=== PATIENT | female | born 1980 | race Caucasian/White ===

== ENCOUNTER 2017-02-11 23:56 | Inpatient (IN) | payer BC ==
[2017-02-12] MEDS ORDERED: Ondansetron 4 MG/2 ML SDV IVPUSH ONE
[2017-02-12] MEDS ORDERED: HYDROmorphone 0.5 MG/0.5 ML Syringe IVPUSH ONE
--- NOTE | 2017-02-12 00:08 | EDM.PDOC ---
ED HPI DIABETIC EMERGENCY - General Chief Complaint: Gastrointestinal Problem Stated Complaint: SOB/VOMITING Time Seen by Provider: 02/11/17 23:56 Source: Reports: Patient History Limitations: Reports: No limitations - History of Present Illness INITIAL COMMENTS - FREE TEXT/NARRATIVE: 36-year-old female with type 1 diabetes who has an insulin pump was up here in the area for a 5K race yesterday. Last night she was out celebrating until late , and this morning was nauseous and vomiting. She was afraid because she wasn' t having any oral intake that she may go hypoglycemic if she took insulin so she turned her pump off. She has not had any insulin today. She's been unable to keep down fluids. She has a horrible migraine headache and abdominal cramps. Severity: severe Associated symptoms: Reports: shortness of breath (Feels short of breath) Associated Symptoms: Reports: headaches, nausea/vomiting, shortness of breath, weakness. Denies: chest pain, fever/chills - Related Data Allergies/ADRs: Allergies Allergy/AdvReac Type Severity Reaction Status Date / Time No Known Allergies Allergy Verified 02/12/17 00:07 Home Meds: Home Meds Medtronic Insulin Pump 02/12/17 [History] ED ROS GENERAL - Review of Systems Review Of Systems: See Below Constitutional: Reports: malaise, weakness Respiratory: Reports: Shortness of Breath Cardiovascular: Denies: Chest pain GI/Abdominal: Reports: Abdominal pain, Nausea, Vomiting : Reports: no symptoms Skin: Reports: pallor Neurological: Reports: Headache Psychiatric: Reports: Other (Patient is very uncomfortable and anxious) ED EXAM GENERAL NO PERIP PULSE - Physical Exam Exam: See Below Exam Limited By: No limitations General Appearance: alert, moderate distress (Very uncomfortable) Eye Exam: bilateral eye: EOMI (No jaundice) Throat/Mouth: Other (Oral mucosa appears moderately dry) Respiratory/Chest: no respiratory distress, lungs clear Cardiovascular: regular rate, rhythm, tachycardia (Mild tachycardia) GI/Abdominal: soft, tender (Diffuse tenderness to palpation, no focal tenderness ) Extremities: No: pedal edema Neurological: alert, no motor/sensory deficits Psychiatric: anxious Skin Exam: Warm, Dry Course - Vital Signs Last Recorded V/S: Last Vital Signs Temp 98.1 F 02/11/17 23:59 Pulse 113 H 02/12/17 01:55 Resp 21 H 02/12/17 01:55 BP 138/72 02/12/17 01:55 Pulse Ox 100 02/12/17 01:55 - Orders/Labs/Meds Orders: Active Orders 24 hr Category Date Time Status Patient Status Manage Transfer [TRANSFER] Routine ADT 02/12/17 01:33 Active HYDROmorphone [Dilaudid] Med 02/12/17 01:47 Active 0.5 mg IVPUSH Q2H PRN Insulin Regular, Human [NovoLIN R] 100 unit Med 02/12/17 00:45 Active Sodium Chloride 0.9% [Normal Saline] 100 ml IV TITRATE Sodium Chloride 0.9% [Normal Saline] 1,000 ml Med 02/12/17 00:00 Active IV ASDIRECTED Sodium Chloride 0.9% [Normal Saline] 1,000 ml Med 02/12/17 01:15 Active IV ASDIRECTED Resuscitation Status Routine Resus Stat 02/12/17 01:34 Ordered Medication Orders Hydromorphone HCl (Dilaudid) 0.5 mg IVPUSH Q2H PRN PRN Reason: Pain (severe 7-10) Last Admin: 02/12/17 02:05 Dose: 0.5 mg Sodium Chloride (Normal Saline) 1,000 mls @ 1,000 mls/hr IV ASDIRECTED JENNIFER Last Admin: 02/12/17 00:18 Dose: 1,000 mls/hr Insulin Human Regular 100 unit (/ Sodium Chloride) 101 mls @ 8.08 mls/hr IV TITRATE JENNIFER; 8 UNITS/HR PRN Reason: Protocol Last Titration: 02/12/17 02:25 Dose: 4 units/hr, 4.04 mls/hr Titration: 02/12/17 02:07 Dose: 6 units/hr, 6.06 mls/hr Admin: 02/12/17 00:58 Dose: 8 units/hr, 8.08 mls/hr Sodium Chloride (Normal Saline) 1,000 mls @ 500 mls/hr IV ASDIRECTED JENNIFER Stop: 02/12/17 03:16 Last Admin: 02/12/17 01:18 Dose: 500 mls/hr Labs: Laboratory Tests 02/11/17 02/11/17 02/12/17 Range/Units 23:59 23:59 00:00 WBC 29.0 H (4.5-11.0) K/uL RBC 4.72 (3.30-5.50) M/uL Hgb 13.7 (12.0-15.0) g/dL Hct 42.3 (36.0-48.0) % MCV 90 (80-98) fL MCH 29 (27-31) pg MCHC 32 (32-36) % Plt Count 551 H (150-400) K/uL Add Manual Diff Yes Neutrophils % (Manual) 86 H (36-66) % Band Neutrophils % 3 L (5-11) % Lymphocytes % (Manual) 4 L (24-44) % Monocytes % (Manual) 7 H (2-6) % Sample Site POC ABG pH (7.35-7.45) POC ABG pCO2 (35-45) mmHG POC ABG pO2 (80-105) mmHg POC ABG HCO3 (22.0-26.0) mmol/L POC ABG Total CO2 (23-27) mmol/L POC ABG O2 Sat (95-98) % POC ABG Base Excess (-2-3) mmol/L O2 Delivery Device Sodium 132 L (140-148) mmol/L Potassium 6.0 H (3.6-5.2) mmol/L Chloride 95 L (100-108) mmol/L Carbon Dioxide < 5 L (21-32) mmol/L Anion Gap 38.0 H (5.0-14.0) mmol/L BUN 25 H (7-18) mg/dL Creatinine 2.0 H (0.6-1.0) mg/dL Est Cr Clr Drug Dosing 37.45 mL/min Estimated GFR (MDRD) 28 L (>60) Glucose 599 H* (74-106) mg/dL Calcium 8.3 L (8.5-10.1) mg/dL Total Bilirubin 0.6 (0.2-1.0) mg/dL AST 36 (15-37) U/L ALT 39 (12-78) U/L Alkaline Phosphatase 104 (46-116) U/L Total Protein 9.1 H (6.4-8.2) g/dL Albumin 4.5 (3.4-5.0) g/dL Globulin 4.6 H (2.3-3.5) g/dL Albumin/Globulin Ratio 1.0 L (1.2-2.2) Lipase 389 (73-393) U/L Urine Color Urine Appearance Urine pH (4.5-8.0) Ur Specific Sumner (1.008-1.030) Urine Protein (NEGATIVE) mg/dL Urine Glucose (UA) (NEGATIVE) mg/dL Urine Ketones (NEGATIVE) mg/dL Urine Occult Blood (NEGATIVE) Urine Nitrite (NEGATIVE) Urine Bilirubin (NEGATIVE) Urine Urobilinogen (NORMAL) mg/dL Ur Leukocyte Esterase (NEGATIVE) Urine RBC (0-5) Urine WBC (0-5) Ur Epithelial Cells Amorphous Sediment Urine Bacteria Urine Mucus Ketones Large H (NEGATIVE) 02/12/17 02/12/17 Range/Units 00:01 01:56 WBC (4.5-11.0) K/uL RBC (3.30-5.50) M/uL Hgb (12.0-15.0) g/dL Hct (36.0-48.0) % MCV (80-98) fL MCH (27-31) pg MCHC (32-36) % Plt Count (150-400) K/uL Add Manual Diff Neutrophils % (Manual) (36-66) % Band Neutrophils % (5-11) % Lymphocytes % (Manual) (24-44) % Monocytes % (Manual) (2-6) % Sample Site R brachial POC ABG pH 7.08 L* (7.35-7.45) POC ABG pCO2 13.8 L* (35-45) mmHG POC ABG pO2 117 H (80-105) mmHg POC ABG HCO3 4.1 L (22.0-26.0) mmol/L POC ABG Total CO2 < 5 L (23-27) mmol/L POC ABG O2 Sat 97 (95-98) % POC ABG Base Excess -26 L (-2-3) mmol/L O2 Delivery Device Room air Sodium (140-148) mmol/L Potassium (3.6-5.2) mmol/L Chloride (100-108) mmol/L Carbon Dioxide (21-32) mmol/L Anion Gap (5.0-14.0) mmol/L BUN (7-18) mg/dL Creatinine (0.6-1.0) mg/dL Est Cr Clr Drug Dosing mL/min Estimated GFR (MDRD) (>60) Glucose (74-106) mg/dL Calcium (8.5-10.1) mg/dL Total Bilirubin (0.2-1.0) mg/dL AST (15-37) U/L ALT (12-78) U/L Alkaline Phosphatase (46-116) U/L Total Protein (6.4-8.2) g/dL Albumin (3.4-5.0) g/dL Globulin (2.3-3.5) g/dL Albumin/Globulin Ratio (1.2-2.2) Lipase (73-393) U/L Urine Color Yellow Urine Appearance Clear Urine pH 5.0 (4.5-8.0) Ur Specific Sumner 1.020 (1.008-1.030) Urine Protein Negative (NEGATIVE) mg/dL Urine Glucose (UA) >1000 H (NEGATIVE) mg/dL Urine Ketones 150 H (NEGATIVE) mg/dL Urine Occult Blood Moderate (NEGATIVE) Urine Nitrite Negative (NEGATIVE) Urine Bilirubin Negative (NEGATIVE) Urine Urobilinogen Normal (NORMAL) mg/dL Ur Leukocyte Esterase Negative (NEGATIVE) Urine RBC 0-5 (0-5) Urine WBC 0-5 (0-5) Ur Epithelial Cells Few Amorphous Sediment Not seen Urine Bacteria Few Urine Mucus Not seen Ketones (NEGATIVE) Meds: Medications Generic Name Dose Route Start Last Admin Trade Name Freq PRN Reason Stop Dose Admin Hydromorphone HCl 0.5 mg 02/12/17 01:47 02/12/17 02:05 Dilaudid IVPUSH 0.5 mg Q2H PRN Administration Pain (severe 7-10) Sodium Chloride 1,000 mls @ 1,000 mls/hr 02/12/17 00:00 02/12/17 00:18 Normal Saline IV 1,000 mls/hr ASDIRECTED JENNIFER Administration Insulin Human Regular 100 unit 101 mls @ 8.08 mls/hr 02/12/17 00:45 02/12/17 02:25 / Sodium Chloride IV 4 units/hr TITRATE JENNIFER 4.04 mls/hr Protocol Titration 8 UNITS/HR Sodium Chloride 1,000 mls @ 500 mls/hr 02/12/17 01:15 02/12/17 01:18 Normal Saline IV 02/12/17 03:16 500 mls/hr ASDIRECTED JENNIFER Administration Discontinued Medications Generic Name Dose Route Start Last Admin Trade Name Josiahq PRN Reason Stop Dose Admin Hydromorphone HCl 0.5 mg 02/12/17 00:00 02/12/17 00:20 Dilaudid IVPUSH 02/12/17 00:01 0.5 mg ONETIME ONE Administration Hydromorphone HCl Confirm 02/12/17 02:02 Dilaudid Administered 02/12/17 02:03 Dose 0.5 mg .ROUTE .STK-MED ONE Sodium Chloride Confirm 02/12/17 00:46 Normal Saline Administered 02/12/17 00:47 Dose 100 mls @ as directed .ROUTE .STK-MED ONE Insulin Human Regular 8 unit 02/12/17 00:15 02/12/17 00:22 Novolin R IVPUSH 02/12/17 00:16 8 units ONETIME ONE Administration Protocol Ondansetron HCl 4 mg 02/12/17 00:00 02/12/17 00:18 Zofran IVPUSH 02/12/17 00:01 4 mg ONETIME ONE Administration - Re-Assessments/Exams Free Text/Narrative Re-Assessment/Exam: 02/12/17 00:48 An IV was started and hydration was began with normal saline 1 L bolus. A point -of-care glucose was obtained and was 599. CBC, CMP, lipase and serum ketones were obtained as well as ABGs on room air. PH was 7.08, HCO3 was only 4.1. 8 units of IV insulin were given to the patient and an insulin drip at 8 units an hour was started. Patient was given 4 mg of Zofran IV and 0.5 mg of Dilaudid IV for symptoms. Potassium was 5.9 so potassium will be held until the next liter given for rehydration. Dr. Sen of the hospitalist service was called for admission. Departure - Departure Time of Disposition: 02:21 Disposition: Admitted As Inpatient 65 Condition: fair Clinical Impression: Hyperglycemia Diabetic ketoacidosis Qualifiers: Diabetes mellitus type: type 1 Diabetes mellitus complication detail: without coma Qualified Code(s): E10.10 - Type 1 diabetes mellitus with ketoacidosis without coma Referrals: PCP,None [Primary Care Provider] - Forms: ED Department Discharge Care Plan Goals: Patient is to be admitted to the ICU by the hospitalist service. Aggressive rehydration as well as glucose control and electrolyte monitoring will continue. - My Orders Last 24 Hours: My Active Orders 02/12/17 00:00 Sodium Chloride 0.9% [Normal Saline] 1,000 ml IV ASDIRECTED - Assessment/Plan Last 24 Hours: My Active Orders 02/12/17 00:00 Sodium Chloride 0.9% [Normal Saline] 1,000 ml IV ASDIRECTED
[2017-02-12] MEDS ORDERED: Insulin Regular, Human 100 Units/ML 10 ML Vial IVPUSH ONE (00:15)
[2017-02-12] MEDS ORDERED: Sodium Chloride 0.9% 100 ML ONE (00:46)
[2017-02-12] MEDS ORDERED: Sodium Chloride 0.9% 1,000 ML IV SCH ×4 (01:15→09:45)
--- NOTE | 2017-02-12 01:47 | PCM.HP ---
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 She does appear visiting family and ran a 5K race. She notes that rates her insulin pump needle appeared to be kinked and she removed insulin pump. After running a race she completely forgot to put her back on. Left leg to celebrate finishing the race and doing well she was family and friends and had several alcoholic beverages. She woke up this morning with nausea, vomiting and diffuse crampy abdominal pain. Pain was moderate and did not radiate. She didn't take anything to make it better. Vomiting seems to make the pain worse. She vomited every 15-30 minutes pretty much all day and finally came to the emergency room tonight for further evaluation. She has not had any fevers and was well prior to starting the race. She has not had any diarrhea or change in urinary habits. No complaints of chest pain or shortness of breath. Workup in the emergency room was remarkable for diabetic ketoacidosis with a pH of 7.08, bicarbonate is less than 5 and her potassium was 6. Creatinine is 2. She will be admitted to the intensive care unit for management and insulin infusion. 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: Musculoskeletal History: Reports: Fracture Other Musculoskeletal History: left and right wrist Neurological History: Reports: Migraines Endocrine/Metabolic History: Reports: Diabetes, type I - Past Surgical History Female Surgical History: Reports: Tubal ligation Social & Family History - Family History Endocrine/Metabolic: Denies: Diabetes, type I - Tobacco Use Smoking Status *Q: Never Smoker - Caffeine Use Caffeine Use: Reports: Coffee - Alcohol Use Alcohol Use History: Yes Days Per Week of Alcohol Use: 1 - Recreational Drug Use Recreational Drug Use: No H&P Review of Systems - Review of Systems: Review Of Systems: See Below Free Text/Narrative: A complete 12 point review of systems was obtained. Pertinent positives and negatives are noted in the history of present illness. All other systems were reviewed and were negative except as noted. Exam - Exam Exam: See Below - Vital Signs Vital Signs: Last Vital Signs Temp 36.7 C 02/11/17 23:59 Pulse 114 H 02/12/17 00:26 Resp 22 H 02/12/17 00:26 BP 146/83 H 02/12/17 00:26 Pulse Ox 99 02/12/17 00:26 Weight: 67.132 kg - Exam Quality Assessment: No: supplemental oxygen, urinary catheter General: alert, oriented, cooperative, mild distress HEENT: Conjunctiva clear, Hearing intact. No: Mucosa moist & pink (dry), Scleral icterus Neck: supple, trachea midline. No: lymphadenopathy, thyromegaly Lungs: Clear to auscultation, Normal respiratory effort Cardiovascular: regular rhythm, tachycardia. No: systolic murmur Abdomen: normal bowel sounds, soft, tenderness (Mild diffuse). No: distention Back Exam: normal inspection, full range of motion Extremities: normal inspection, normal pulses. No: cyanosis, edema Peripheral Pulses: 2+: dorsalis pedis (L), dorsalis pedis (R) Skin: warm, dry, intact. No: rash Neuro Extensive - Mental Status: alert, oriented x3, nl response to commands Neuro Extensive - Motor, Sensory, Reflexes: CN II-XII intact. No: dysarthria, abnormal motor, tremor Psychiatric: alert, normal affect, normal mood - Patient Data Lab Results last 24 hrs: Laboratory Results - last 24 hr 02/11/17 02/11/17 02/12/17 Range/Units 23:59 23:59 00:00 WBC 29.0 H (4.5-11.0) K/uL RBC 4.72 (3.30-5.50) M/uL Hgb 13.7 (12.0-15.0) g/dL Hct 42.3 (36.0-48.0) % MCV 90 (80-98) fL MCH 29 (27-31) pg MCHC 32 (32-36) % Plt Count 551 H (150-400) K/uL Add Manual Diff Yes Neutrophils % (Manual) 86 H (36-66) % Band Neutrophils % 3 L (5-11) % Lymphocytes % (Manual) 4 L (24-44) % Monocytes % (Manual) 7 H (2-6) % Sample Site POC ABG pH (7.35-7.45) POC ABG pCO2 (35-45) mmHG POC ABG pO2 (80-105) mmHg POC ABG HCO3 (22.0-26.0) mmol/L POC ABG Total CO2 (23-27) mmol/L POC ABG O2 Sat (95-98) % POC ABG Base Excess (-2-3) mmol/L O2 Delivery Device Sodium 132 L (140-148) mmol/L Potassium 6.0 H (3.6-5.2) mmol/L Chloride 95 L (100-108) mmol/L Carbon Dioxide < 5 L (21-32) mmol/L Anion Gap 38.0 H (5.0-14.0) mmol/L BUN 25 H (7-18) mg/dL Creatinine 2.0 H (0.6-1.0) mg/dL Est Cr Clr Drug Dosing 37.45 mL/min Estimated GFR (MDRD) 28 L (>60) Glucose 599 H* (74-106) mg/dL Calcium 8.3 L (8.5-10.1) mg/dL Total Bilirubin 0.6 (0.2-1.0) mg/dL AST 36 (15-37) U/L ALT 39 (12-78) U/L Alkaline Phosphatase 104 (46-116) U/L Total Protein 9.1 H (6.4-8.2) g/dL Albumin 4.5 (3.4-5.0) g/dL Globulin 4.6 H (2.3-3.5) g/dL Albumin/Globulin Ratio 1.0 L (1.2-2.2) Lipase 389 (73-393) U/L Ketones Large H (NEGATIVE) 02/12/17 Range/Units 00:01 WBC (4.5-11.0) K/uL RBC (3.30-5.50) M/uL Hgb (12.0-15.0) g/dL Hct (36.0-48.0) % MCV (80-98) fL MCH (27-31) pg MCHC (32-36) % Plt Count (150-400) K/uL Add Manual Diff Neutrophils % (Manual) (36-66) % Band Neutrophils % (5-11) % Lymphocytes % (Manual) (24-44) % Monocytes % (Manual) (2-6) % Sample Site R brachial POC ABG pH 7.08 L* (7.35-7.45) POC ABG pCO2 13.8 L* (35-45) mmHG POC ABG pO2 117 H (80-105) mmHg POC ABG HCO3 4.1 L (22.0-26.0) mmol/L POC ABG Total CO2 < 5 L (23-27) mmol/L POC ABG O2 Sat 97 (95-98) % POC ABG Base Excess -26 L (-2-3) mmol/L O2 Delivery Device Room air Sodium (140-148) mmol/L Potassium (3.6-5.2) mmol/L Chloride (100-108) mmol/L Carbon Dioxide (21-32) mmol/L Anion Gap (5.0-14.0) mmol/L BUN (7-18) mg/dL Creatinine (0.6-1.0) mg/dL Est Cr Clr Drug Dosing mL/min Estimated GFR (MDRD) (>60) Glucose (74-106) mg/dL Calcium (8.5-10.1) mg/dL Total Bilirubin (0.2-1.0) mg/dL AST (15-37) U/L ALT (12-78) U/L Alkaline Phosphatase (46-116) U/L Total Protein (6.4-8.2) g/dL Albumin (3.4-5.0) g/dL Globulin (2.3-3.5) g/dL Albumin/Globulin Ratio (1.2-2.2) Lipase (73-393) U/L Ketones (NEGATIVE) Result Diagrams: 02/11/17 23:59 02/11/17 23:59 *Q Meaningful Use (ADM) - VTE *Q VTE Criteria *Q: - VTE Risk Assess *Q Each Risk Factor Represents 1 Point: None Total Score 1 Point Risk Factors: 0 Each Risk Factor Represents 2 Points: None Total Score 2 Point Risk Factors: 0 Each Risk Factor Represents 3 Points: None Total Score 3 Point Risk Factors: 0 Each Risk Factor Represents 5 Points: None Total Score 5 Point Risk Factors: 0 Venous Thromboembolism Risk Factor Score *Q: 0 - Stroke *Q Stroke Criteria *Q: - AMI *Q AMI Criteria *Q: - Problem List (1) Diabetic ketoacidosis SNOMED Code(s): 418048456, 311170673 ICD Code: E13.10 - OTH DIABETES MELLITUS WITH KETOACIDOSIS WITHOUT COMA Status: Acute Current Visit: Yes Qualifiers: Diabetes mellitus type: type 1 Diabetes mellitus complication detail: without coma Qualified Code(s): E10.10 - Type 1 diabetes mellitus with ketoacidosis without coma (2) Hyperkalemia SNOMED Code(s): 74496937 ICD Code: E87.5 - HYPERKALEMIA Status: Acute Current Visit: Yes (3) Acute kidney injury SNOMED Code(s): 60765059 ICD Code: N17.9 - ACUTE KIDNEY FAILURE, UNSPECIFIED Status: Acute Current Visit: Yes Problem List Initiated/Reviewed/Updated: Yes Orders Last 24hrs: Active Orders 24 hr Category Date Time Status Patient Status Manage Transfer [TRANSFER] Routine ADT 02/12/17 01:33 Ordered UA W/MICROSCOPIC [URIN] Stat Lab 02/12/17 01:15 Uncollected Insulin Regular, Human [NovoLIN R] 100 unit Med 02/12/17 00:45 Active Sodium Chloride 0.9% [Normal Saline] 100 ml IV TITRATE Sodium Chloride 0.9% [Normal Saline] 1,000 ml Med 02/12/17 00:00 Active IV ASDIRECTED Sodium Chloride 0.9% [Normal Saline] 1,000 ml Med 02/12/17 01:15 Active IV ASDIRECTED Resuscitation Status Routine Resus Stat 02/12/17 01:34 Ordered Medication Orders Sodium Chloride (Normal Saline) 1,000 mls @ 1,000 mls/hr IV ASDIRECTED JENNIFER Last Admin: 02/12/17 00:18 Dose: 1,000 mls/hr Insulin Human Regular 100 unit (/ Sodium Chloride) 101 mls @ 8.08 mls/hr IV TITRATE JENNIFER; 8 UNITS/HR PRN Reason: Protocol Last Admin: 02/12/17 00:58 Dose: 8 units/hr, 8.08 mls/hr Sodium Chloride (Normal Saline) 1,000 mls @ 500 mls/hr IV ASDIRECTED JENNIFER Stop: 02/12/17 03:16 Last Admin: 02/12/17 01:18 Dose: 500 mls/hr Assessment/Plan Comment:: Assessment and plan - Diabetic ketoacidosis - secondary to insulin pump failure and removal without replacement. No strong evidence for infection at this time. Patient has significant acidosis and mild hyperkalemia. She is dehydrated. Complicated by vomiting and abdominal pain. -IV fluids -Insulin drip -Accu-Cheks every hour -BMP every 4 hours -Check magnesium level -Limits blood sugar less than 250 start D5 normal saline if anion gap has normalized and continue insulin drip -Restart insulin pump once blood sugar and bicarbonate normal Acute kidney injury - secondary to dehydration with diabetes ketoacidosis. I would anticipate normalization of kidney function with some fluids. -IV fluids repeat labs in 4 hours Hyperkalemia - mild, secondary to acidosis. Plan to recheck in 4 hours and may need to adjust depending on level at that time. -Repeat labs in 4 hours Maintenance issues - - DVT prophylaxis - mechanical - GI prophylaxis - not indicated - Nutrition - clear liquids - Molina catheter - indicated CODE STATUS - full code Admission justification - This patient will be admitted for inpatient services and is medically appropriate meeting medical necessity for inpatient admission as outlined in my documentation. I reasonably expect the patient will require inpatient services that span a period time over 2 midnights. I reasonably expect this patient to be discharged or transferred within 96 hours [facility]. Disposition - anticipate discharge home Primary care physician - PCP is in [place], [place] Bj Sen M.D.
[2017-02-12] MEDS ORDERED: HYDROmorphone 0.5 MG/0.5 ML Syringe ONE (02:02)
[2017-02-12] MEDS: HYDROmorphone 0.5 MG/0.5 ML Syringe IVPUSH PRN ×4 (02:05→18:30)
[2017-02-12] MEDS ORDERED: Ondansetron 4 MG Tab.DIS PO PRN (03:14)
[2017-02-12] MEDS ORDERED: 50% Dextrose in Water 50 ML Syringe IVPUSH PRN ×2 (03:14→09:29)
[2017-02-12] MEDS: Dextrose 5%-0.9% NaCl 1,000 ML IV SCH ×3 (04:07→20:15)
[2017-02-12] MEDS: Acetaminophen 325 MG Tab PO PRN (06:11)
[2017-02-12] MEDS: Ondansetron 4 MG/2 ML SDV IV PRN ×2 (07:08→20:29)
[2017-02-12] MEDS ORDERED: STERILE WATER IV PRN ×3 (09:29)
[2017-02-12] MEDS ORDERED: Magnesium Sulfate/Water 50 ML IV PRN (09:29)
[2017-02-12] MEDS ORDERED: POTASSIUM CHLORIDE IV PRN ×3 (09:29)
[2017-02-12] MEDS ORDERED: Potassium Chloride 10% 20 MEQ/15 ML Soln 15 ML UD Cup PO PRN ×3 (09:29)
[2017-02-12] MEDS ORDERED: Potassium Chloride 40 MEQ in Premix Bag 1 BAG IV PRN ×2 (09:43→09:54)
--- NOTE | 2017-02-12 09:44 | PCM.PN ---
- General Info Date of Service: 02/12/17 Functional Status: Reports: pain controlled, tolerating diet - Review of Systems General: Reports: Weakness. Denies: Fever, Fatigue, Chills Pulmonary: Reports: no symptoms Cardiovascular: Reports: No Symptoms Gastrointestinal: Reports: Abdominal pain, Nausea, Vomiting. Denies: Constipation, Diarrhea, Difficulty swallowing Genitourinary: Reports: no symptoms Systems Review Comment:: This patient is a 36-year-old woman who was admitted last night to the intensive care unit with severe diabetic ketoacidosis. She has improved modestly since admission, glucose levels have come down but she remained significantly acidotic with a bicarbonate of less than 10 and an anion gap still in the 20s. Continues to experience some symptoms of nausea with intermittent vomiting. Vital signs have otherwise been stable, urine output has been negligible thus far. - Patient Data Vitals - most recent: Last Vital Signs Temp 98.9 F 02/12/17 08:00 Pulse 112 H 02/12/17 06:00 Resp 20 02/12/17 08:00 BP 111/61 02/12/17 08:00 Pulse Ox 98 02/12/17 08:00 Weight - most recent: 141 lb 14.408 oz I&O - last 24 hours: Intake & Output 02/11/17 02/12/17 02/12/17 22:59 06:59 14:59 Intake Total 1401 Output Total 500 400 Balance 901 -400 Lab Results last 24 hrs: Laboratory Results - last 24 hr 02/12/17 02/12/17 02/12/17 Range/Units 01:56 05:51 05:51 WBC 23.4 H (4.5-11.0) K/uL RBC 4.04 (3.30-5.50) M/uL Hgb 11.6 L D (12.0-15.0) g/dL Hct 35.7 L (36.0-48.0) % MCV 88 (80-98) fL MCH 29 (27-31) pg MCHC 33 (32-36) % Plt Count 397 (150-400) K/uL Sodium 135 L (140-148) mmol/L Potassium 5.0 (3.6-5.2) mmol/L Chloride 105 (100-108) mmol/L Carbon Dioxide 8 L (21-32) mmol/L Anion Gap 27.0 H (5.0-14.0) mmol/L BUN 21 H (7-18) mg/dL Creatinine 1.4 H (0.6-1.0) mg/dL Est Cr Clr Drug Dosing 53.50 mL/min Estimated GFR (MDRD) 42 L (>60) Glucose 226 H (74-106) mg/dL Calcium 7.3 L (8.5-10.1) mg/dL Magnesium 1.9 (1.8-2.4) mg/dL Urine Color Yellow Urine Appearance Clear Urine pH 5.0 (4.5-8.0) Ur Specific [place] 1.020 (1.008-1.030) Urine Protein Negative (NEGATIVE) mg/dL Urine Glucose (UA) >1000 H (NEGATIVE) mg/dL Urine Ketones 150 H (NEGATIVE) mg/dL Urine Occult Blood Moderate (NEGATIVE) Urine Nitrite Negative (NEGATIVE) Urine Bilirubin Negative (NEGATIVE) Urine Urobilinogen Normal (NORMAL) mg/dL Ur Leukocyte Esterase Negative (NEGATIVE) Urine RBC 0-5 (0-5) Urine WBC 0-5 (0-5) Ur Epithelial Cells Few Amorphous Sediment Not seen Urine Bacteria Few Urine Mucus Not seen Med Orders - Current: Current Medications Acetaminophen (Tylenol) 650 mg PO Q4H PRN PRN Reason: Pain (Mild 1-3)/fever Last Admin: 02/12/17 06:11 Dose: 650 mg Dextrose/Water (Dextrose 50% In Water) 50 ml IVPUSH ONETIME PRN PRN Reason: Blood Glucose Dextrose/Water (Dextrose 50% In Water) 50 ml IVPUSH ONETIME PRN PRN Reason: Blood Glucose Hydromorphone HCl (Dilaudid) 0.5 mg IVPUSH Q2H PRN PRN Reason: Pain (severe 7-10) Last Admin: 02/12/17 07:13 Dose: 0.5 mg Dextrose/Sodium Chloride (Dextrose 5%-Normal Saline) 1,000 mls @ 125 mls/hr IV ASDIRECTED JENNIFER Last Admin: 02/12/17 04:07 Dose: 125 mls/hr Insulin Human Regular 100 unit (/ Sodium Chloride) 101 mls @ 6.76 mls/hr IV TITRATE JENNIFER; 0.1 UNIT/KG/HR PRN Reason: Protocol Sodium Chloride (Normal Saline) 1,000 mls @ 125 mls/hr IV ASDIRECTED JENNIFER Last Admin: 02/12/17 03:20 Dose: 125 mls/hr Magnesium Sulfate (Magnesium Sulfate 2 Gm In Water 50 Ml) 50 mls @ 25 mls/hr IV ONETIME PRN PRN Reason: low magnesium Lorazepam (Ativan) 0.5 mg IVPUSH Q2H PRN PRN Reason: Nausea Ondansetron HCl (Zofran Odt) 4 mg PO Q6H PRN PRN Reason: Nausea able to take PO Ondansetron HCl (Zofran) 4 mg IV Q6H PRN PRN Reason: Nausea/Vomiting Last Admin: 02/12/17 07:08 Dose: 4 mg Potassium Chloride (Potassium Chloride Solution) 20 meq PO NOW PRN PRN Reason: Hypokalemia Potassium Chloride (Kcl 40 Meq In Water 100 Ml) 20 meq IV NOW PRN PRN Reason: Hypokalemia Potassium Chloride (Potassium Chloride Solution) 40 meq PO NOW PRN PRN Reason: Hypokalemia Potassium Chloride (Kcl 40 Meq In Water 100 Ml) 40 meq IV NOW PRN PRN Reason: Hypokalemia Potassium Chloride (Potassium Chloride Solution) 40 meq PO Q2H PRN PRN Reason: Hypokalemia Stop: 02/12/17 11:30 Potassium Chloride (Kcl 40 Meq In Water 100 Ml) 40 meq IV Q4H PRN PRN Reason: Hypokalemia Stop: 02/12/17 13:30 Discontinued Medications Hydromorphone HCl (Dilaudid) 0.5 mg IVPUSH ONETIME ONE Stop: 02/12/17 00:01 Last Admin: 02/12/17 00:20 Dose: 0.5 mg Hydromorphone HCl (Dilaudid) Confirm Administered Dose 0.5 mg .ROUTE .STK-MED ONE Stop: 02/12/17 02:03 Last Admin: 02/12/17 03:16 Dose: Not Given Sodium Chloride (Normal Saline) 1,000 mls @ 1,000 mls/hr IV ASDIRECTED JENNIFER Last Admin: 02/12/17 00:18 Dose: 1,000 mls/hr Insulin Human Regular 100 unit (/ Sodium Chloride) 101 mls @ 8.08 mls/hr IV TITRATE JENNIFER; 8 UNITS/HR PRN Reason: Protocol Last Titration: 02/12/17 09:00 Dose: 2.5 units/hr, 2.52 mls/hr Sodium Chloride (Normal Saline) Confirm Administered Dose 100 mls @ as directed .ROUTE .STK-MED ONE Stop: 02/12/17 00:47 Last Admin: 02/12/17 03:16 Dose: Not Given Sodium Chloride (Normal Saline) 1,000 mls @ 500 mls/hr IV ASDIRECTED [facility] Stop: 02/12/17 03:16 Last Admin: 02/12/17 01:18 Dose: 500 mls/hr Insulin Human Regular (Novolin R) 8 unit IVPUSH ONETIME ONE PRN Reason: Protocol Stop: 02/12/17 00:16 Last Admin: 02/12/17 00:22 Dose: 8 units Ondansetron HCl (Zofran) 4 mg IVPUSH ONETIME ONE Stop: 02/12/17 00:01 Last Admin: 02/12/17 00:18 Dose: 4 mg - Exam Lungs: Clear to auscultation, Normal respiratory effort Cardiovascular: Regular Rate, Regular Rhythm, No Murmurs Abdomen: bowel sounds present, soft, no tenderness, no distension Extremities: no edema Skin: warm, dry, intact - Problem List Review Problem List Initiated/Reviewed/Updated: Yes - My Orders Last 24 Hours: My Active Orders 02/12/17 09:29 Diabetes Education [RC] Click to Edit Vital Signs [RC] Q1H Dextrose 50% in Water 50 ml IVPUSH ONETIME PRN Magnesium Sulfate/Water [Magnesium Sulfate 2 GM in Water 50 ML] 50 ml IV ONETIME Potassium Chloride [KCL 40 MEQ in Water 100 ML] 20 meq IV NOW PRN Potassium Chloride [KCL 40 MEQ in Water 100 ML] 40 meq IV NOW PRN Potassium Chloride [KCL 40 MEQ in Water 100 ML] 40 meq IV Q4H PRN Potassium Chloride [Potassium Chloride Solution] 20 meq PO NOW PRN Potassium Chloride [Potassium Chloride Solution] 40 meq PO NOW PRN Potassium Chloride [Potassium Chloride Solution] 40 meq PO Q2H PRN 02/12/17 09:30 BASIC METABOLIC PANEL,BMP [CHEM] Q4H MAGNESIUM [CHEM] Q6H PHOSPHORUS [CHEM] Q6H Medication Continuation Instructions [OM.PC] ASDIRECTED Medication Discontinuation Instructions [OM.PC] ASDIRECTED 02/12/17 09:31 Notify Provider Laboratory Res [RC] ASDIRECTED Notify Provider Laboratory Res [RC] ASDIRECTED Notify Provider Laboratory Res [RC] ASDIRECTED 02/12/17 09:33 LORazepam [Ativan] 0.5 mg IVPUSH Q2H PRN 02/12/17 11:30 POTASSIUM,K [CHEM] Q2H 02/12/17 13:30 BASIC METABOLIC PANEL,BMP [CHEM] Q4H 02/12/17 15:30 MAGNESIUM [CHEM] Q6H PHOSPHORUS [CHEM] Q6H POTASSIUM,K [CHEM] Q2H 02/12/17 17:30 BASIC METABOLIC PANEL,BMP [CHEM] Q4H 02/12/17 19:30 POTASSIUM,K [CHEM] Q2H 02/12/17 21:30 BASIC METABOLIC PANEL,BMP [CHEM] Q4H MAGNESIUM [CHEM] Q6H PHOSPHORUS [CHEM] Q6H 02/12/17 23:30 POTASSIUM,K [CHEM] Q2H 02/13/17 01:30 BASIC METABOLIC PANEL,BMP [CHEM] Q4H POTASSIUM,K [CHEM] Q2H 02/13/17 03:30 MAGNESIUM [CHEM] Q6H PHOSPHORUS [CHEM] Q6H POTASSIUM,K [CHEM] Q2H 02/13/17 05:00 CBC WITH AUTO DIFF [HEME] Timed COMPREHENSIVE METABOLIC PN,CMP [CHEM] Timed 02/13/17 05:30 BASIC METABOLIC PANEL,BMP [CHEM] Q4H POTASSIUM,K [CHEM] Q2H 02/13/17 07:30 POTASSIUM,K [CHEM] Q2H - Plan Plan:: Assessment and plan - Diabetic ketoacidosis - secondary to insulin pump failure and removal without replacement. No strong evidence for infection at this time. Modest improvement since admission, glucose levels are improved but she continues to have a significant acidosis. -IV fluids -Insulin drip -Potassium every 2 hours -Accu-Cheks every hour -BMP every 4 hours -Check magnesium level -Limits blood sugar less than 250 start D5 normal saline if anion gap has normalized and continue insulin drip -Restart insulin pump once blood sugar and bicarbonate normal Acute kidney injury - secondary to dehydration with diabetes ketoacidosis. Renal function has improved with IV fluids, urine output remains poor. -Continue to monitor urine output and renal function closely Hyperkalemia - mild, secondary to acidosis. Plan to recheck in 4 hours and may need to adjust depending on level at that time. -Potassium level every 2 hours Maintenance issues - - DVT prophylaxis - mechanical - GI prophylaxis - not indicated - Nutrition - clear liquids - Molina catheter - indicated CODE STATUS - full code Admission justification - This patient will be admitted for inpatient services and is medically appropriate meeting medical necessity for inpatient admission as outlined in my documentation. I reasonably expect the patient will require inpatient services that span a period time over 2 midnights. I reasonably expect this patient to be discharged or transferred within 96 hours [facility] Disposition - anticipate discharge home Primary care physician - PCP is in [place], [place]
[2017-02-12] MEDS ORDERED: Potassium Chloride 20 MEQ in Premix Bag 1 BAG IV PRN (09:45)
[2017-02-12] MEDS: LORazepam 2 MG/ML MDV IVPUSH PRN ×5 (09:52→21:14)
[2017-02-12] MEDS: Pantoprazole 40 MG Vial IVPUSH SCH (10:38)
[2017-02-12] MEDS ORDERED: Calcium Gluconate 2 GM in Sodium Chloride 0.9% 100 ML IV ONE (16:00)
[2017-02-12] MEDS ORDERED: Lidocaine 1% 2 ML ONE (22:44)
[2017-02-13] MEDS: Dextrose 5%-0.9% NaCl 1,000 ML IV SCH ×3 (04:08→20:36)
[2017-02-13] MEDS ORDERED: POTASSIUM PHOSPHATES IV SCH ×2 (04:45→07:00)
[2017-02-13] MEDS ORDERED: SODIUM CHLORIDE IV SCH ×2 (04:45→07:00)
[2017-02-13] MEDS ORDERED: Potassium Phosphates 20 MMOLE in Sodium Chloride 0.9% 250 ML IV SCH (08:00)
[2017-02-13] MEDS: Pantoprazole 40 MG Vial IVPUSH SCH (08:18)
[2017-02-13] MEDS: Potassium Phosphates 20 MMOLE in Sodium Chloride 0.9% 250 ML IV SCH ×2 (08:41→12:35)
[2017-02-13] MEDS: HYDROmorphone 0.5 MG/0.5 ML Syringe IVPUSH PRN ×3 (09:07→20:33)
[2017-02-13] MEDS: LORazepam 2 MG/ML MDV IVPUSH PRN ×3 (09:43→20:33)
[2017-02-13] MEDS ORDERED: Potassium Chloride 20 MEQ Tab.ER PO ONE (10:00)
[2017-02-13] MEDS: Ondansetron 4 MG/2 ML SDV IV PRN (10:53)
--- NOTE | 2017-02-13 11:06 | MR ---
MR brain. Indication: Headache Findings: No restricted diffusion to indicate acute infarct. No hemosiderin deposition. Tiny punctat e 2 mm focus of high T2 signal deep to the right insular cortex within the white matter on axial alanis ge #[id number] FLAIR. Cerebral vascular flow voids are patent. Mild ethmoidal mucosal thickening. No extra-a xial fluid collection. Impression: 1. No acute infarct. 2. Tiny high T2 focus within the white matter just deep to the right insular cortex. Questionable cl inical significance. It is indeterminate but could indicate small vessel ischemic disease, tiny insu lt or demyelination.
[2017-02-13] MEDS ORDERED: SUMAtriptan 6 MG/0.5 ML SDV SUBCUT ONE (13:00)
[2017-02-13] MEDS ORDERED: Potassium Chloride 20 MEQ, Lidocaine 1% 2 ML in Sodium Chloride 0.9% 100 ML IV ONE (17:00)
--- NOTE | 2017-02-13 19:20 | PCM.PN ---
- General Info Date of Service: 02/13/17 Functional Status: Reports: urinating - Review of Systems General: Reports: Weakness. Denies: Fever, Chills Pulmonary: Reports: no symptoms Cardiovascular: Reports: No Symptoms Gastrointestinal: Reports: Nausea. Denies: Abdominal pain, Constipation, Diarrhea, Vomiting Neurological: Reports: Headache Systems Review Comment:: This patient has done well over the past 24 hours with total resolution of her diabetic ketoacidosis. Unfortunately she is had ongoing difficulty with a headache, there is a past history of migraine headaches which have not occurred over the past several years. Headache is present on the left side and radiates back towards the posterior aspect of the head. MRI was obtained today without contrast and shows no significant abnormalities to explain the headache. She did receive a dose of Imitrex earlier today and headache has been significantly improved over the past few hours. Oral intake has been very poor and for this reason she has remained on infusion of IV fluids with dextrose as well as her IV insulins infusion. - Patient Data Vitals - most recent: Last Vital Signs Temp 98.3 F 02/13/17 16:59 Pulse 112 H 02/12/17 06:00 Resp 15 02/13/17 18:00 BP 131/89 02/13/17 18:00 Pulse Ox 98 02/13/17 18:00 Weight - most recent: 141 lb 14.408 oz I&O - last 24 hours: Intake & Output 02/13/17 02/13/17 02/13/17 06:59 14:59 22:59 Intake Total 1780 1883 Output Total 500 600 700 Balance -500 1180 1183 Lab Results last 24 hrs: Laboratory Results - last 24 hr 02/12/17 02/12/17 02/13/17 Range/Units 20:21 22:01 00:02 WBC (4.5-11.0) K/uL RBC (3.30-5.50) M/uL Hgb (12.0-15.0) g/dL Hct (36.0-48.0) % MCV (80-98) fL MCH (27-31) pg MCHC (32-36) % Plt Count (150-400) K/uL Neut % (Auto) (36-66) % Lymph % (Auto) (24-44) % [place] % (Auto) (2-6) % Eos % (Auto) (2-4) % Baso % (Auto) (0-1) % Sodium 141 (140-148) mmol/L Potassium 4.0 3.9 4.1 (3.6-5.2) mmol/L Chloride 109 H (100-108) mmol/L Carbon Dioxide 22 (21-32) mmol/L Anion Gap 13.9 (5.0-14.0) mmol/L BUN 11 (7-18) mg/dL Creatinine 1.0 (0.6-1.0) mg/dL Est Cr Clr Drug Dosing 74.70 mL/min Estimated GFR (MDRD) > 60 (>60) Glucose 204 H (74-106) mg/dL Calcium 7.4 L (8.5-10.1) mg/dL Phosphorus 1.3 L (2.5-4.9) mg/dL Magnesium 2.0 (1.8-2.4) mg/dL Total Bilirubin (0.2-1.0) mg/dL AST (15-37) U/L ALT (12-78) U/L Alkaline Phosphatase (46-116) U/L Total Protein (6.4-8.2) g/dL Albumin (3.4-5.0) g/dL Globulin (2.3-3.5) g/dL Albumin/Globulin Ratio (1.2-2.2) 02/13/17 02/13/17 02/13/17 Range/Units 02:00 04:00 04:10 WBC (4.5-11.0) K/uL RBC (3.30-5.50) M/uL Hgb (12.0-15.0) g/dL Hct (36.0-48.0) % MCV (80-98) fL MCH (27-31) pg MCHC (32-36) % Plt Count (150-400) K/uL Neut % (Auto) (36-66) % Lymph % (Auto) (24-44) % [place] % (Auto) (2-6) % Eos % (Auto) (2-4) % Baso % (Auto) (0-1) % Sodium 141 141 (140-148) mmol/L Potassium 4.3 3.8 (3.6-5.2) mmol/L Chloride 110 H 110 H (100-108) mmol/L Carbon Dioxide 22 23 (21-32) mmol/L Anion Gap 13.3 11.8 (5.0-14.0) mmol/L BUN 10 8 (7-18) mg/dL Creatinine 0.9 0.9 (0.6-1.0) mg/dL Est Cr Clr Drug Dosing 83.01 83.01 mL/min Estimated GFR (MDRD) > 60 > 60 (>60) Glucose 194 H 183 H (74-106) mg/dL Calcium 7.2 L 7.3 L (8.5-10.1) mg/dL Phosphorus 0.8 L (2.5-4.9) mg/dL Magnesium 1.9 (1.8-2.4) mg/dL Total Bilirubin 0.2 D (0.2-1.0) mg/dL AST 25 (15-37) U/L ALT 27 (12-78) U/L Alkaline Phosphatase 57 (46-116) U/L Total Protein 5.7 L (6.4-8.2) g/dL Albumin 2.7 L (3.4-5.0) g/dL Globulin 3.0 (2.3-3.5) g/dL Albumin/Globulin Ratio 0.9 L (1.2-2.2) 02/13/17 02/13/17 02/13/17 Range/Units 04:10 06:00 07:59 WBC 12.0 H (4.5-11.0) K/uL RBC 3.59 (3.30-5.50) M/uL Hgb 10.3 L (12.0-15.0) g/dL Hct 30.8 L (36.0-48.0) % MCV 86 (80-98) fL MCH 29 (27-31) pg MCHC 33 (32-36) % Plt Count 291 (150-400) K/uL Neut % (Auto) 76 H (36-66) % Lymph % (Auto) 15 L (24-44) % [place] % (Auto) 9 H (2-6) % Eos % (Auto) 0 L (2-4) % Baso % (Auto) 0 (0-1) % Sodium 141 (140-148) mmol/L Potassium 3.7 3.3 L (3.6-5.2) mmol/L Chloride 111 H (100-108) mmol/L Carbon Dioxide 24 (21-32) mmol/L Anion Gap 9.7 (5.0-14.0) mmol/L BUN 8 (7-18) mg/dL Creatinine 0.9 (0.6-1.0) mg/dL Est Cr Clr Drug Dosing 83.01 mL/min Estimated GFR (MDRD) > 60 (>60) Glucose 190 H (74-106) mg/dL Calcium 7.3 L (8.5-10.1) mg/dL Phosphorus (2.5-4.9) mg/dL Magnesium (1.8-2.4) mg/dL Total Bilirubin (0.2-1.0) mg/dL AST (15-37) U/L ALT (12-78) U/L Alkaline Phosphatase (46-116) U/L Total Protein (6.4-8.2) g/dL Albumin (3.4-5.0) g/dL Globulin (2.3-3.5) g/dL Albumin/Globulin Ratio (1.2-2.2) 02/13/17 02/13/17 Range/Units 11:58 16:03 WBC (4.5-11.0) K/uL RBC (3.30-5.50) M/uL Hgb (12.0-15.0) g/dL Hct (36.0-48.0) % MCV (80-98) fL MCH (27-31) pg MCHC (32-36) % Plt Count (150-400) K/uL Neut % (Auto) (36-66) % Lymph % (Auto) (24-44) % [place] % (Auto) (2-6) % Eos % (Auto) (2-4) % Baso % (Auto) (0-1) % Sodium 142 143 (140-148) mmol/L Potassium 3.5 L 3.9 (3.6-5.2) mmol/L Chloride 109 H 111 H (100-108) mmol/L Carbon Dioxide 24 25 (21-32) mmol/L Anion Gap 12.5 10.9 (5.0-14.0) mmol/L BUN 7 7 (7-18) mg/dL Creatinine 0.9 0.8 (0.6-1.0) mg/dL Est Cr Clr Drug Dosing 83.01 93.38 mL/min Estimated GFR (MDRD) > 60 > 60 (>60) Glucose 241 H 186 H (74-106) mg/dL Calcium 7.2 L 7.0 L (8.5-10.1) mg/dL Phosphorus 2.4 L (2.5-4.9) mg/dL Magnesium (1.8-2.4) mg/dL Total Bilirubin (0.2-1.0) mg/dL AST (15-37) U/L ALT (12-78) U/L Alkaline Phosphatase (46-116) U/L Total Protein (6.4-8.2) g/dL Albumin (3.4-5.0) g/dL Globulin (2.3-3.5) g/dL Albumin/Globulin Ratio (1.2-2.2) Med Orders - Current: Current Medications Acetaminophen (Tylenol) 650 mg PO Q4H PRN PRN Reason: Pain (Mild 1-3)/fever Last Admin: 02/12/17 06:11 Dose: 650 mg Dextrose/Water (Dextrose 50% In Water) 50 ml IVPUSH ONETIME PRN PRN Reason: Blood Glucose Dextrose/Water (Dextrose 50% In Water) 50 ml IVPUSH ONETIME PRN PRN Reason: Blood Glucose Hydromorphone HCl (Dilaudid) 0.5 mg IVPUSH Q2H PRN PRN Reason: Pain (severe 7-10) Last Admin: 02/13/17 14:30 Dose: 0.5 mg Dextrose/Sodium Chloride (Dextrose 5%-Normal Saline) 1,000 mls @ 125 mls/hr IV ASDIRECTED [facility] Last Admin: 02/13/17 12:48 Dose: 125 mls/hr Magnesium Sulfate (Magnesium Sulfate 2 Gm In Water 50 Ml) 50 mls @ 25 mls/hr IV ONETIME PRN PRN Reason: low magnesium Last Admin: 02/12/17 10:43 Dose: 25 mls/hr Potassium Chloride 20 meq/ (Premix) 100 mls @ 50 mls/hr IV ONETIME PRN PRN Reason: HYPOKALEMIA Last Admin: 02/12/17 23:08 Dose: 50 mls/hr Potassium Chloride 40 meq/ (Premix) 100 mls @ 25 mls/hr IV ONETIME PRN PRN Reason: HYPOKALEMIA Potassium Chloride 40 meq/ (Premix) 100 mls @ 25 mls/hr IV Q4H PRN PRN Reason: HYPOKALEMIA Insulin Human Regular 100 unit (/ Sodium Chloride) 101 mls @ 8.08 mls/hr IV TITRATE JENNIFER; 8 UNITS/HR PRN Reason: Protocol Last Titration: 02/13/17 14:05 Dose: 2 units/hr, 2.02 mls/hr Lorazepam (Ativan) 0.5 mg IVPUSH Q2H PRN PRN Reason: Nausea Last Admin: 02/13/17 14:24 Dose: 0.5 mg Ondansetron HCl (Zofran Odt) 4 mg PO Q6H PRN PRN Reason: Nausea able to take PO Last Admin: 02/12/17 14:12 Dose: 4 mg Ondansetron HCl (Zofran) 4 mg IV Q6H PRN PRN Reason: Nausea/Vomiting Last Admin: 02/13/17 10:53 Dose: 4 mg Pantoprazole Sodium (Protonix Iv) 40 mg IVPUSH DAILY JENNIFER Last Admin: 02/13/17 08:18 Dose: 40 mg Potassium Chloride (Potassium Chloride Solution) 20 meq PO NOW PRN PRN Reason: Hypokalemia Last Admin: 02/12/17 23:08 Dose: 20 meq Potassium Chloride (Potassium Chloride Solution) 40 meq PO NOW PRN PRN Reason: Hypokalemia Potassium Chloride (Potassium Chloride Solution) 40 meq PO Q2H PRN PRN Reason: Hypokalemia Discontinued Medications Hydromorphone HCl (Dilaudid) 0.5 mg IVPUSH ONETIME ONE Stop: 02/12/17 00:01 Last Admin: 02/12/17 00:20 Dose: 0.5 mg Hydromorphone HCl (Dilaudid) Confirm Administered Dose 0.5 mg .ROUTE .STK-MED ONE Stop: 02/12/17 02:03 Last Admin: 02/12/17 03:16 Dose: Not Given Sodium Chloride (Normal Saline) 1,000 mls @ 1,000 mls/hr IV ASDIRECTED JENNIFER Last Admin: 02/12/17 00:18 Dose: 1,000 mls/hr Insulin Human Regular 100 unit (/ Sodium Chloride) 101 mls @ 8.08 mls/hr IV TITRATE JENNIFER; 8 UNITS/HR PRN Reason: Protocol Last Titration: 02/12/17 09:00 Dose: 2.5 units/hr, 2.52 mls/hr Sodium Chloride (Normal Saline) Confirm Administered Dose 100 mls @ as directed .ROUTE .[facility] ONE Stop: 02/12/17 00:47 Last Admin: 02/12/17 03:16 Dose: Not Given Sodium Chloride (Normal Saline) 1,000 mls @ 500 mls/hr IV ASDIRECTED JENNIFER Stop: 02/12/17 03:16 Last Admin: 02/12/17 01:18 Dose: 500 mls/hr Insulin Human Regular 100 unit (/ Sodium Chloride) 101 mls @ 6.76 mls/hr IV TITRATE JENNIFER; 0.1 UNIT/KG/HR PRN Reason: Protocol Sodium Chloride (Normal Saline) 1,000 mls @ 125 mls/hr IV ASDIRECTED JENNIFER Last Admin: 02/12/17 03:20 Dose: 125 mls/hr Sodium Chloride (Normal Saline) 1,000 mls @ 250 mls/hr IV ASDIRECTED JENINFER Stop: 02/12/17 13:46 Last Admin: 02/12/17 10:01 Dose: 250 mls/hr Calcium Gluconate 2 gm/ Sodium (Chloride) 120 mls @ 100 mls/hr IV ONETIME ONE Stop: 02/12/17 17:11 Last Admin: 02/12/17 15:48 Dose: 100 mls/hr Lidocaine HCl (Xylocaine-Mpf 1%) Confirm Administered Dose 2 mls @ as directed .ROUTE .[facility] ONE Stop: 02/12/17 22:45 Last Admin: 02/12/17 23:17 Dose: Not Given Potassium Phosphate 40 mmole/ (Sodium Chloride) 263.3333 mls @ 85.556 mls/hr IV ONETIME JENNIFER Potassium Phosphate 40 mmole/ (Sodium Chloride) 263.3333 mls @ 85.556 mls/hr IV ONETIME JENNIFER Potassium Phosphate 20 mmole/ (Sodium Chloride) 256.6667 mls @ 85.556 mls/hr IV Q3H JENNIFER Stop: 02/13/17 13:59 Last Admin: 02/13/17 12:35 Dose: 85.556 mls/hr Potassium Chloride 20 meq/Lidocaine HCl 2 ml/ Sodium Chloride 112 mls @ 56 mls/ hr IV ONETIME ONE Stop: 02/13/17 18:59 Last Admin: 02/13/17 16:59 Dose: 56 mls/hr Insulin Human Regular (Novolin R) 8 unit IVPUSH ONETIME ONE PRN Reason: Protocol Stop: 02/12/17 00:16 Last Admin: 02/12/17 00:22 Dose: 8 units Ondansetron HCl (Zofran) 4 mg IVPUSH ONETIME ONE Stop: 02/12/17 00:01 Last Admin: 02/12/17 00:18 Dose: 4 mg Potassium Chloride (Klor-Con M20) 40 meq PO ONETIME ONE Stop: 02/13/17 10:01 Last Admin: 02/13/17 11:51 Dose: 40 meq Sumatriptan Succinate (Imitrex) 6 mg SUBCUT ONETIME ONE Stop: 02/13/17 13:01 Last Admin: 02/13/17 12:54 Dose: 6 mg - Exam General: alert, cooperative, moderate distress Lungs: Clear to auscultation, Normal respiratory effort Cardiovascular: Regular Rate, Regular Rhythm, No Murmurs Abdomen: bowel sounds present, soft, no tenderness, no distension Extremities: no edema Skin: warm, dry, intact Neurological: no new focal deficit - Problem List Review Problem List Initiated/Reviewed/Updated: Yes - My Orders Last 24 Hours: My Active Orders 02/13/17 19:13 Vital Signs [RC] Q2H 02/13/17 Dinner Consistent Carbohydrate Diet [DIET] 02/14/17 05:00 BASIC METABOLIC PANEL,BMP [CHEM] Timed - Plan Plan:: Assessment and plan - Diabetic ketoacidosis - ketoacidosis has resolved over the past 24 hours, oral intake has been poor because of ongoing headache and nausea. -IV fluids -Insulin drip -Potassium every 2 hours -Accu-Cheks every 2 hours -BMP every 4 hours -Check magnesium level -Limits blood sugar less than 250 start D5 normal saline if anion gap has normalized and continue insulin drip -Restart insulin pump once blood sugar and bicarbonate normal and headache and nausea have resolved Migraine headache with nausea-ongoing difficulty despite resolution of ketoacidosis. She received Imitrex earlier today with good results and headache seems to have resolved over the past few hours. -Pain medication and antiemetic therapy as needed Acute kidney injury - resolved -Continue to monitor urine output and renal function closely Maintenance issues - - DVT prophylaxis - mechanical - GI prophylaxis - not indicated - Nutrition - clear liquids - Molina catheter - indicated CODE STATUS - full code Admission justification - This patient will be admitted for inpatient services and is medically appropriate meeting medical necessity for inpatient admission as outlined in my documentation. I reasonably expect the patient will require inpatient services that span a period time over 2 midnights. I reasonably expect this patient to be discharged or transferred within 96 hours after admission to the [facility]. Disposition - anticipate discharge home Primary care physician - PCP is in [place], [place]
[2017-02-14] MEDS: Dextrose 5%-0.9% NaCl 1,000 ML IV SCH (04:04)
[2017-02-14] MEDS: Acetaminophen 325 MG Tab PO PRN ×2 (07:48→14:23)
[2017-02-14] MEDS: Pantoprazole 40 MG Vial IVPUSH SCH (07:59)
--- NOTE | 2017-02-14 10:29 | PCM.PN ---
- General Info Date of Service: 02/14/17 Functional Status: Reports: pain controlled, tolerating diet, ambulating, urinating - Review of Systems General: Reports: Weakness. Denies: Fever, Chills Cardiovascular: Reports: No Symptoms Gastrointestinal: Reports: No symptoms Genitourinary: Reports: no symptoms Neurological: Reports: No Symptoms. Denies: Headache Systems Review Comment:: This patient has improved significantly since yesterday, headache is essentially resolved and nausea significantly improved. There's been no recurrence of her ketoacidosis. - Patient Data Vitals - most recent: Last Vital Signs Temp 97.2 F 02/14/17 08:00 Pulse 84 02/14/17 10:00 Resp 20 02/14/17 10:00 BP 142/89 H 02/14/17 10:00 Pulse Ox 99 02/14/17 10:00 Weight - most recent: 141 lb 14.408 oz I&O - last 24 hours: Intake & Output 02/13/17 02/14/17 02/14/17 22:59 06:59 14:59 Intake Total 1983 1535 360 Output Total 1200 450 Balance 783 1085 360 Lab Results last 24 hrs: Laboratory Results - last 24 hr 02/13/17 02/13/17 02/14/17 Range/Units 11:58 16:03 05:00 Sodium 142 143 143 (140-148) mmol/L Potassium 3.5 L 3.9 3.6 (3.6-5.2) mmol/L Chloride 109 H 111 H 112 H (100-108) mmol/L Carbon Dioxide 24 25 25 (21-32) mmol/L Anion Gap 12.5 10.9 9.6 (5.0-14.0) mmol/L BUN 7 7 5 L (7-18) mg/dL Creatinine 0.9 0.8 0.8 (0.6-1.0) mg/dL Est Cr Clr Drug Dosing 83.01 93.38 93.38 mL/min Estimated GFR (MDRD) > 60 > 60 > 60 (>60) Glucose 241 H 186 H 151 H (74-106) mg/dL Calcium 7.2 L 7.0 L 7.2 L (8.5-10.1) mg/dL Phosphorus 2.4 L (2.5-4.9) mg/dL Med Orders - Current: Current Medications Acetaminophen (Tylenol) 650 mg PO Q4H PRN PRN Reason: Pain (Mild 1-3)/fever Last Admin: 02/14/17 07:48 Dose: 650 mg Dextrose/Water (Dextrose 50% In Water) 50 ml IVPUSH ONETIME PRN PRN Reason: Blood Glucose Hydromorphone HCl (Dilaudid) 0.5 mg IVPUSH Q2H PRN PRN Reason: Pain (severe 7-10) Last Admin: 02/13/17 20:33 Dose: 0.5 mg Lorazepam (Ativan) 0.5 mg IVPUSH Q2H PRN PRN Reason: Nausea Last Admin: 02/13/17 20:33 Dose: 0.5 mg Ondansetron HCl (Zofran Odt) 4 mg PO Q6H PRN PRN Reason: Nausea able to take PO Last Admin: 02/12/17 14:12 Dose: 4 mg Ondansetron HCl (Zofran) 4 mg IV Q6H PRN PRN Reason: Nausea/Vomiting Last Admin: 02/13/17 10:53 Dose: 4 mg Pantoprazole Sodium (Protonix Iv) 40 mg IVPUSH DAILY JENNIFER Last Admin: 02/14/17 07:59 Dose: 40 mg Discontinued Medications Dextrose/Water (Dextrose 50% In Water) 50 ml IVPUSH ONETIME PRN PRN Reason: Blood Glucose Hydromorphone HCl (Dilaudid) 0.5 mg IVPUSH ONETIME ONE Stop: 02/12/17 00:01 Last Admin: 02/12/17 00:20 Dose: 0.5 mg Hydromorphone HCl (Dilaudid) Confirm Administered Dose 0.5 mg .ROUTE .STK-MED ONE Stop: 02/12/17 02:03 Last Admin: 02/12/17 03:16 Dose: Not Given Sodium Chloride (Normal Saline) 1,000 mls @ 1,000 mls/hr IV ASDIRECTED JENNIFER Last Admin: 02/12/17 00:18 Dose: 1,000 mls/hr Insulin Human Regular 100 unit (/ Sodium Chloride) 101 mls @ 8.08 mls/hr IV TITRATE JENNIFER; 8 UNITS/HR PRN Reason: Protocol Last Titration: 02/12/17 09:00 Dose: 2.5 units/hr, 2.52 mls/hr Sodium Chloride (Normal Saline) Confirm Administered Dose 100 mls @ as directed .ROUTE .STK-MED ONE Stop: 02/12/17 00:47 Last Admin: 02/12/17 03:16 Dose: Not Given Sodium Chloride (Normal Saline) 1,000 mls @ 500 mls/hr IV [facility] Stop: 02/12/17 03:16 Last Admin: 02/12/17 01:18 Dose: 500 mls/hr Dextrose/Sodium Chloride (Dextrose 5%-Normal Saline) 1,000 mls @ 125 mls/hr IV ASDIRECTED [facility] Last Admin: 02/14/17 04:04 Dose: 125 mls/hr Insulin Human Regular 100 unit (/ Sodium Chloride) 101 mls @ 6.76 mls/hr IV TITRATE JENNIFER; 0.1 UNIT/KG/HR PRN Reason: Protocol Sodium Chloride (Normal Saline) 1,000 mls @ 125 mls/hr IV [facility] Last Admin: 02/12/17 03:20 Dose: 125 mls/hr Magnesium Sulfate (Magnesium Sulfate 2 Gm In Water 50 Ml) 50 mls @ 25 mls/hr IV ONETIME PRN PRN Reason: low magnesium Last Admin: 02/12/17 10:43 Dose: 25 mls/hr Potassium Chloride 20 meq/ (Premix) 100 mls @ 50 mls/hr IV ONETIME PRN PRN Reason: HYPOKALEMIA Last Admin: 02/12/17 23:08 Dose: 50 mls/hr Potassium Chloride 40 meq/ (Premix) 100 mls @ 25 mls/hr IV ONETIME PRN PRN Reason: HYPOKALEMIA Sodium Chloride (Normal Saline) 1,000 mls @ 250 mls/hr IV [facility] Stop: 02/12/17 13:46 Last Admin: 02/12/17 10:01 Dose: 250 mls/hr Potassium Chloride 40 meq/ (Premix) 100 mls @ 25 mls/hr IV Q4H PRN PRN Reason: HYPOKALEMIA Insulin Human Regular 100 unit (/ Sodium Chloride) 101 mls @ 8.08 mls/hr IV TITRATE JENNIFER; 8 UNITS/HR PRN Reason: Protocol Last Titration: 02/14/17 10:13 Dose: 0 units/hr, 0 mls/hr Calcium Gluconate 2 gm/ Sodium (Chloride) 120 mls @ 100 mls/hr IV ONETIME ONE Stop: 02/12/17 17:11 Last Admin: 02/12/17 15:48 Dose: 100 mls/hr Lidocaine HCl (Xylocaine-Mpf 1%) Confirm Administered Dose 2 mls @ as directed .ROUTE .STK-MED ONE Stop: 02/12/17 22:45 Last Admin: 02/12/17 23:17 Dose: Not Given Potassium Phosphate 40 mmole/ (Sodium Chloride) 263.3333 mls @ 85.556 mls/hr IV ONETIME JENNIFER Potassium Phosphate 40 mmole/ (Sodium Chloride) 263.3333 mls @ 85.556 mls/hr IV ONETIME JENNIFER Potassium Phosphate 20 mmole/ (Sodium Chloride) 256.6667 mls @ 85.556 mls/hr IV Q3H JENNIFER Stop: 02/13/17 13:59 Last Admin: 02/13/17 12:35 Dose: 85.556 mls/hr Potassium Chloride 20 meq/Lidocaine HCl 2 ml/ Sodium Chloride 112 mls @ 56 mls/ hr IV ONETIME ONE Stop: 02/13/17 18:59 Last Admin: 02/13/17 16:59 Dose: 56 mls/hr Insulin Human Regular (Novolin R) 8 unit IVPUSH ONETIME ONE PRN Reason: Protocol Stop: 02/12/17 00:16 Last Admin: 02/12/17 00:22 Dose: 8 units Ondansetron HCl (Zofran) 4 mg IVPUSH ONETIME ONE Stop: 02/12/17 00:01 Last Admin: 02/12/17 00:18 Dose: 4 mg Potassium Chloride (Potassium Chloride Solution) 20 meq PO NOW PRN PRN Reason: Hypokalemia Last Admin: 02/12/17 23:08 Dose: 20 meq Potassium Chloride (Potassium Chloride Solution) 40 meq PO NOW PRN PRN Reason: Hypokalemia Potassium Chloride (Potassium Chloride Solution) 40 meq PO Q2H PRN PRN Reason: Hypokalemia Potassium Chloride (Klor-Con M20) 40 meq PO ONETIME ONE Stop: 02/13/17 10:01 Last Admin: 02/13/17 11:51 Dose: 40 meq Sumatriptan Succinate (Imitrex) 6 mg SUBCUT ONETIME ONE Stop: 02/13/17 13:01 Last Admin: 02/13/17 12:54 Dose: 6 mg - Exam Quality Assessment: DVT prophylaxis General: alert, oriented, cooperative, no acute distress Lungs: Clear to auscultation, Normal respiratory effort Cardiovascular: Regular Rate, Regular Rhythm, No Murmurs Abdomen: bowel sounds present, soft, no tenderness, no distension Extremities: no edema Skin: warm, dry, intact - Problem List Review Problem List Initiated/Reviewed/Updated: Yes - My Orders Last 24 Hours: My Active Orders 02/13/17 19:13 Vital Signs [RC] Q2H 02/13/17 Dinner Consistent Carbohydrate Diet [DIET] - Plan Plan:: Assessment and plan - Diabetic ketoacidosis - no recurrence of ketoacidosis, appetite improved, nausea and headache have resolved -saline lock IV -discontinue IV insulins -Accu-Cheks every 2 hours -restart insulin pump Migraine headache with nausea-Resolved -Pain medication and antiemetic therapy as needed Acute kidney injury - resolved -Continue to monitor urine output and renal function closely Maintenance issues - - DVT prophylaxis - mechanical - GI prophylaxis - not indicated - Nutrition - clear liquids - Molina catheter - indicated CODE STATUS - full code Admission justification - This patient will be admitted for inpatient services and is medically appropriate meeting medical necessity for inpatient admission as outlined in my documentation. I reasonably expect the patient will require inpatient services that span a period time over 2 midnights. I reasonably expect this patient to be discharged or transferred within 96 hours [facility] Disposition - anticipate discharge home later today if she remains stable with transitioned to insulin pump Primary care physician - PCP is in [place], [place]
[2017-02-14] MEDS ORDERED: Ibuprofen 600 MG Tab PO PRN (12:19)
[2017-02-14 14:53] VITALS: BP 127/86
--- NOTE | 2017-02-14 16:17 | PCM.DCSUM1 ---
Discharge Summary - Hospital Course Brief History: This patient is a 30-year-old woman with type 1 diabetes mellitus who was admitted through the emergency department with severe diabetic ketoacidosis. - Discharge Data Discharge Date: 02/14/17 Discharge Disposition: Home, Self-Care 01 Condition: Fair - Discharge Diagnosis/Problem(s) (1) Migraine headache SNOMED Code(s): 73760321 ICD Code: G43.909 - MIGRAINE, UNSP, NOT INTRACTABLE, WITHOUT STATUS MIGRAINOSUS Status: Acute Current Visit: Yes (2) Nausea & vomiting SNOMED Code(s): 16959276 ICD Code: R11.2 - NAUSEA WITH VOMITING, UNSPECIFIED Status: Acute Current Visit: Yes (3) Diabetic ketoacidosis SNOMED Code(s): 991323778, 995140877 ICD Code: E13.10 - OTH DIABETES MELLITUS WITH KETOACIDOSIS WITHOUT COMA Status: Acute Current Visit: Yes Qualifiers: Diabetes mellitus type: type 1 Diabetes mellitus complication detail: without coma Qualified Code(s): E10.10 - Type 1 diabetes mellitus with ketoacidosis without coma (4) Hyperkalemia SNOMED Code(s): 02041280 ICD Code: E87.5 - HYPERKALEMIA Status: Acute Current Visit: Yes (5) Acute kidney injury SNOMED Code(s): 13617081 ICD Code: N17.9 - ACUTE KIDNEY FAILURE, UNSPECIFIED Status: Acute Current Visit: Yes - Patient Summary/Data Hospital Course: This patient is a 36-year-old woman who was admitted through the emergency department with severe diabetic ketoacidosis. She was visiting this area from the [facility], to participate in a 5K run. She has a known history of type 1 diabetes mellitus and uses an insulin pump to manage her diabetes. Prior to the run she noted that her infusion line to her insulin pump was kinked. She removed the pump at that time with the intention of placing it back on after she completed her run. She forgot to place the infusion line back in and over the next 24 hours became severely ill with profound weakness, abdominal pain, nausea and vomiting. She presented to the emergency department on the evening of the following day and was found to be in severe diabetic ketoacidosis. Glucose level was significantly elevated and she was noted to have a marked metabolic acidosis with a pH of less than 7.1. Anion gap was elevated at greater than 30 and her bicarbonate level was less than 10. She was admitted to the hospital and given IV fluids and IV insulins per the ketoacidosis protocol. Over the next 24 hours for ketoacidosis resolved with this management. Unfortunately she developed a severe migraine headache while in the hospital and had associated nausea and vomiting. She had a distant past history of migraine headaches but had not had them for at least a period of 15 years. Because of the new intense and persistent headache MRI of the brain was obtained without contrast and showed no significant abnormalities. She was treated with Imitrex for the headache and the headache resolved with significant improvement in the nausea vomiting. By the following day she did have some mild residual headache but was able to eat and drink adequately. IV fluids and IV insulins infusion were discontinued and she was started back on her insulin pump. She will be discharged home with her usual diabetic diet, activity will be as tolerated. Followup appointment should be scheduled with her primary care provider within one week. - Patient Instructions Diet: Usual Diet as Tolerated Activity: As Tolerated Other/Special Instructions: Schedule followup appointment with primary care provider within one week. - Discharge Plan Prescriptions/Med Rec: SUMAtriptan Succinate [Imitrex] 50 mg PO DAILY PRN #4 tablet PRN Reason: Headache Home Medications: Home Meds Med[employer] Insulin Pump 02/12/17 [History] SUMAtriptan Succinate [Imitrex] 50 mg PO DAILY PRN #4 tablet 02/14/17 [Rx] Referrals: PCP,None [Primary Care Provider] - - Patient Data Vitals - Most Recent: Last Vital Signs Temp 97.2 F 02/14/17 08:00 Pulse 58 L 02/14/17 14:00 Resp 11 L 02/14/17 14:00 BP 127/86 02/14/17 14:00 Pulse Ox 98 02/14/17 14:00 Weight - Most Recent: 141 lb 14.408 oz I&O - Last 24 hours: Intake & Output 02/14/17 02/14/17 02/14/17 06:59 14:59 22:59 Intake Total 1535 480 Output Total 450 Balance 1085 480 Lab Results - Last 24 hrs: Laboratory Results - last 24 hr 02/13/17 02/14/17 Range/Units 16:03 05:00 Sodium 143 143 (140-148) mmol/L Potassium 3.9 3.6 (3.6-5.2) mmol/L Chloride 111 H 112 H (100-108) mmol/L Carbon Dioxide 25 25 (21-32) mmol/L Anion Gap 10.9 9.6 (5.0-14.0) mmol/L BUN 7 5 L (7-18) mg/dL Creatinine 0.8 0.8 (0.6-1.0) mg/dL Est Cr Clr Drug Dosing 93.38 93.38 mL/min Estimated GFR (MDRD) > 60 > 60 (>60) Glucose 186 H 151 H (74-106) mg/dL Calcium 7.0 L 7.2 L (8.5-10.1) mg/dL Med Orders - Current: Current Medications Acetaminophen (Tylenol) 650 mg PO Q4H PRN PRN Reason: Pain (Mild 1-3)/fever Last Admin: 02/14/17 14:23 Dose: 650 mg Dextrose/Water (Dextrose 50% In Water) 50 ml IVPUSH ONETIME PRN PRN Reason: Blood Glucose Hydromorphone HCl (Dilaudid) 0.5 mg IVPUSH Q2H PRN PRN Reason: Pain (severe 7-10) Last Admin: 02/13/17 20:33 Dose: 0.5 mg Ibuprofen (Motrin) 600 mg PO Q6H PRN PRN Reason: Pain Last Admin: 02/14/17 12:45 Dose: 600 mg Lorazepam (Ativan) 0.5 mg IVPUSH Q2H PRN PRN Reason: Nausea Last Admin: 02/13/17 20:33 Dose: 0.5 mg Ondansetron HCl (Zofran Odt) 4 mg PO Q6H PRN PRN Reason: Nausea able to take PO Last Admin: 02/12/17 14:12 Dose: 4 mg Ondansetron HCl (Zofran) 4 mg IV Q6H PRN PRN Reason: Nausea/Vomiting Last Admin: 02/13/17 10:53 Dose: 4 mg Pantoprazole Sodium (Protonix Iv) 40 mg IVPUSH DAILY JENNIFER Last Admin: 02/14/17 07:59 Dose: 40 mg Discontinued Medications Dextrose/Water (Dextrose 50% In Water) 50 ml IVPUSH ONETIME PRN PRN Reason: Blood Glucose Hydromorphone HCl (Dilaudid) 0.5 mg IVPUSH ONETIME ONE Stop: 02/12/17 00:01 Last Admin: 02/12/17 00:20 Dose: 0.5 mg Hydromorphone HCl (Dilaudid) Confirm Administered Dose 0.5 mg .ROUTE .[facility] ONE Stop: 02/12/17 02:03 Last Admin: 02/12/17 03:16 Dose: Not Given Sodium Chloride (Normal Saline) 1,000 mls @ 1,000 mls/hr IV ASDIRECTED [facility] Last Admin: 02/12/17 00:18 Dose: 1,000 mls/hr Insulin Human Regular 100 unit (/ Sodium Chloride) 101 mls @ 8.08 mls/hr IV TITRATE JENNIFER; 8 UNITS/HR PRN Reason: Protocol Last Titration: 02/12/17 09:00 Dose: 2.5 units/hr, 2.52 mls/hr Sodium Chloride (Normal Saline) Confirm Administered Dose 100 mls @ as directed .ROUTE .[facility] ONE Stop: 02/12/17 00:47 Last Admin: 02/12/17 03:16 Dose: Not Given Sodium Chloride (Normal Saline) 1,000 mls @ 500 mls/hr IV ASDIRECTED JENNIFER Stop: 02/12/17 03:16 Last Admin: 02/12/17 01:18 Dose: 500 mls/hr Dextrose/Sodium Chloride (Dextrose 5%-Normal Saline) 1,000 mls @ 125 mls/hr IV ASDIRECTED [facility] Last Admin: 02/14/17 04:04 Dose: 125 mls/hr Insulin Human Regular 100 unit (/ Sodium Chloride) 101 mls @ 6.76 mls/hr IV TITRATE JENNIFER; 0.1 UNIT/KG/HR PRN Reason: Protocol Sodium Chloride (Normal Saline) 1,000 mls @ 125 mls/hr IV ASDIRECTED JENNFIER Last Admin: 02/12/17 03:20 Dose: 125 mls/hr Magnesium Sulfate (Magnesium Sulfate 2 Gm In Water 50 Ml) 50 mls @ 25 mls/hr IV ONETIME PRN PRN Reason: low magnesium Last Admin: 02/12/17 10:43 Dose: 25 mls/hr Potassium Chloride 20 meq/ (Premix) 100 mls @ 50 mls/hr IV ONETIME PRN PRN Reason: HYPOKALEMIA Last Admin: 02/12/17 23:08 Dose: 50 mls/hr Potassium Chloride 40 meq/ (Premix) 100 mls @ 25 mls/hr IV ONETIME PRN PRN Reason: HYPOKALEMIA Sodium Chloride (Normal Saline) 1,000 mls @ 250 mls/hr IV ASDIRECTED JENNIFER Stop: 02/12/17 13:46 Last Admin: 02/12/17 10:01 Dose: 250 mls/hr Potassium Chloride 40 meq/ (Premix) 100 mls @ 25 mls/hr IV Q4H PRN PRN Reason: HYPOKALEMIA Insulin Human Regular 100 unit (/ Sodium Chloride) 101 mls @ 8.08 mls/hr IV TITRATE JENNIFER; 8 UNITS/HR PRN Reason: Protocol Last Titration: 02/14/17 10:13 Dose: 0 units/hr, 0 mls/hr Calcium Gluconate 2 gm/ Sodium (Chloride) 120 mls @ 100 mls/hr IV ONETIME ONE Stop: 02/12/17 17:11 Last Admin: 02/12/17 15:48 Dose: 100 mls/hr Lidocaine HCl (Xylocaine-Mpf 1%) Confirm Administered Dose 2 mls @ as directed .ROUTE .STK-MED ONE Stop: 02/12/17 22:45 Last Admin: 02/12/17 23:17 Dose: Not Given Potassium Phosphate 40 mmole/ (Sodium Chloride) 263.3333 mls @ 85.556 mls/hr IV ONETIME JENNIFER Potassium Phosphate 40 mmole/ (Sodium Chloride) 263.3333 mls @ 85.556 mls/hr IV ONETIME JENNIFER Potassium Phosphate 20 mmole/ (Sodium Chloride) 256.6667 mls @ 85.556 mls/hr IV Q3H JENNIFER Stop: 02/13/17 13:59 Last Admin: 02/13/17 12:35 Dose: 85.556 mls/hr Potassium Chloride 20 meq/Lidocaine HCl 2 ml/ Sodium Chloride 112 mls @ 56 mls/ hr IV ONETIME ONE Stop: 02/13/17 18:59 Last Admin: 02/13/17 16:59 Dose: 56 mls/hr Insulin Human Regular (Novolin R) 8 unit IVPUSH ONETIME ONE PRN Reason: Protocol Stop: 02/12/17 00:16 Last Admin: 02/12/17 00:22 Dose: 8 units Ondansetron HCl (Zofran) 4 mg IVPUSH ONETIME ONE Stop: 02/12/17 00:01 Last Admin: 02/12/17 00:18 Dose: 4 mg Potassium Chloride (Potassium Chloride Solution) 20 meq PO NOW PRN PRN Reason: Hypokalemia Last Admin: 02/12/17 23:08 Dose: 20 meq Potassium Chloride (Potassium Chloride Solution) 40 meq PO NOW PRN PRN Reason: Hypokalemia Potassium Chloride (Potassium Chloride Solution) 40 meq PO Q2H PRN PRN Reason: Hypokalemia Potassium Chloride (Klor-Con M20) 40 meq PO ONETIME ONE Stop: 02/13/17 10:01 Last Admin: 02/13/17 11:51 Dose: 40 meq Sumatriptan Succinate (Imitrex) 6 mg SUBCUT ONETIME ONE Stop: 02/13/17 13:01 Last Admin: 02/13/17 12:54 Dose: 6 mg *Q Meaningful Use (DIS) - VTE *Q VTE Criteria *Q: - Stroke *Q Stroke Criteria *Q: - AMI *Q AMI Criteria *Q:
== END 2017-02-14 16:54 | disposition home or self-care (01) | DRG 420 ==
LOC: JP.ED 23:56 → JP.ICU 02-12 01:33
PROVIDERS: ADMIT Internal Medicine; ATTEND Hospitalist
DX: E10.10 Type 1 diabetes mellitus with ketoacidosis without coma (principal); Z96.41 Presence of insulin pump (external) (internal); Z79.4 Long term (current) use of insulin; N17.9 Acute kidney failure, unspecified; E87.5 Hyperkalemia; E86.0 Dehydration; G43.919 Migraine, unspecified, intractable, without status migrainosus; T85.694A Other mechanical complication of insulin pump, initial encounter; T38.3X6A Underdosing of insulin and oral hypoglycemic [antidiabetic] drugs, initial encounter
CPT/HCPCS: 36415; 36600; 70551; 70551-26; 80048; 80053; 81001; 82009; 82330; 82800; 82803; 82962; 83690; 83735; 84100; 84132; 85025; 85027; 96361; 96374; 96375; 96376; 99285-25; A9270-GY; C9113; J0610; J1170; J2060; J2405; J3030; J3475; J3480; J3490; J7030; J7040; J7050